=== PATIENT | male | born 1990 | race Caucasian/White ===

== ENCOUNTER 2018-12-05 15:50 | Emergency (ER) | payer SELFPAY ==
[~2018-12-05] VITALS: Ht 175.3 cm; Wt 72.6 kg
--- NOTE | 2018-12-05 15:50 | NUR ---
PATIENT ATTEMPTED TO ESCAPE THE ER DURING PREBOOK EVALUATION. PATIENT SLAMMED INTO THE ER AMBULANCE DOORS.
[2018-12-05 15:52] VITALS: BP 130/54
--- NOTE | 2018-12-05 15:52 | NUR ---
BIB [employer] [employer] FOR PREBOOK. PT AAO X4 C/O DIFFICULTY BREATHING. O2 SAT 100% RA. ER TO EVALUATE PT.
[2018-12-05 16:09] VITALS: BP 130/54
--- NOTE | 2018-12-05 16:10 | NUR ---
PATIENT BIB [employer]. PATIENT EXAMINED BY . PATIENT MEDICALLY CLEARED AND RELEASED IN CUSTODY IN STABLE CONDITION. ORIGINAL PRE-BOOK FORM GIVEN TO OFFICER .
== END 2018-12-05 16:10 | disposition home or self-care (01) ==
LOC: MED 15:50
DX: Z02.89 Encounter for other administrative examinations (principal); J45.909 Unspecified asthma, uncomplicated
CPT/HCPCS: 99283

== ENCOUNTER 2023-09-03 08:40 | Emergency (ER) | payer OTHER ==
[~2023-09-03] VITALS: Ht 172.7 cm; Wt 77.2 kg
[2023-09-03 08:47] VITALS: BP 146/94; PULSE 96; RESP 15; TEMP 97.8; O2SAT 100
[2023-09-03] MEDS: IBUPROFEN 600 MG TAB PO ONE (09:41)
[2023-09-03] MEDS ORDERED: IBUP-2213 PO (10:00)
[2023-09-03 10:14] VITALS: BP 136/72; PULSE 81; RESP 16; TEMP 98.2; O2SAT 98
== END 2023-09-03 10:15 | disposition home or self-care (01) ==
LOC: MED 08:40
DX: G89.29 Other chronic pain (principal); M54.6 Pain in thoracic spine; J45.909 Unspecified asthma, uncomplicated; Z79.899 Other long term (current) drug therapy
CPT/HCPCS: 71045; 72072; 99284